=== PATIENT | female | born 1990 | race Caucasian/White ===

== ENCOUNTER → 2017-08-01 | Outpatient (CLI) | payer OTHER ==
--- NOTE | 2017-08-01 13:49 | DIAGNOSTIC IMAGING REPORT ---
ULTRASOUND OF THE THYROID GLAND CLINICAL HISTORY: Chronic tonsillitis. Chronic rhinitis. COMPARISON STUDY: No priors. TECHNIQUE: Real-time, grayscale, and color flow sonography of the thyroid gland is performed utilizing a high-frequency linear transducer. Images are reviewed in the transverse and longitudinal planes. FINDINGS: Right lobe: The right lobe of the thyroid gland is normal in size and homogeneous in echotexture, measuring 6.5 x 2.1 x 1.6 cm. A hypoechoic nodule in the lower pole measures 0.5 x 0.4 x 0.7 cm. Left lobe: The left lobe of the thyroid gland is normal in size and homogeneous in echotexture, measuring 5.8 x 1.9 x 1.7 cm. A hypoechoic nodule in the lower pole measures 1.2 x 0.8 x 1.0 cm. This contains internal echogenic reflectors. A honeycomb nodule in the lower pole measures 1.1 x 0.5 x 0.6 cm. Isthmus: The thyroid isthmus is normal in appearance and measures 0.3 cm in AP diameter. Soft tissues: At the point of interest in the right neck there is an enlarged heterogeneously hypoechoic lymph node. This measures 1.9 x 1.0 x 2.0 cm. IMPRESSION: 1. The thyroid gland is normal in size and echotexture. 2. There is a 1.2 cm hypoechoic nodule in the lower pole. This contains echogenic internal reflectors which is not clearly colloid and could represent microcalcifications. Fine-needle aspiration of this nodule is recommended. 3. There is an indeterminant enlarged right cervical lymph node at the indicated site of interest. This node may be on a reactive basis; however, if this fails to resolve over a real-time then fine-needle aspiration of this lymph node is also recommended. Electronically signed by: Yaw Meyer M.D. 08/01/2017 1:48 PM Dictated Date/Time: 08/01/2017 1:38 PM
== END | disposition home or self-care (01) ==
LOC: C.ULTR 13:10
PROVIDERS: ATTEND Otolaryngology
DX: J35.01 Chronic tonsillitis (principal)